=== PATIENT | female | born 1990 | race Caucasian/White ===

== ENCOUNTER 2020-11-06 20:29 | Emergency (ER) | payer OTHER, SELFPAY ==
--- NOTE | ~2020-11-06 | XR_ITS ---
EXAMINATION: X-RAYS OF THE LEFT TIBIA AND FIBULA LEFT ANKLE, AND LEFT FOOT CLINICAL INFORMATION: Fall COMPARISON: None TECHNIQUE: 2 views of left tibia-fibula. 2 views of the ankle. 3 views of the foot including lateral left ankle FINDINGS: Left ankle: Soft tissue swelling adjacent To the lateral malleolus and anteriorly. I Do not see a fracture. Surrounding bone and soft tissues normal. Left tibia-fibula: Normal no fracture. Left foot: Normal. XR/XR foot LT min 3V IMPRESSION: Soft tissue swelling about the ankle. No fracture or degenerative joint disease of the left tibia-fibula, left ankle, and left foot.
--- NOTE | ~2020-11-06 | XR_ITS ---
EXAMINATION: X-RAYS OF THE LEFT TIBIA AND FIBULA LEFT ANKLE, AND LEFT FOOT CLINICAL INFORMATION: Fall COMPARISON: None TECHNIQUE: 2 views of left tibia-fibula. 2 views of the ankle. 3 views of the foot including lateral left ankle FINDINGS: Left ankle: Soft tissue swelling adjacent To the lateral malleolus and anteriorly. I Do not see a fracture. Surrounding bone and soft tissues normal. Left tibia-fibula: Normal no fracture. Left foot: Normal. XR/XR tibia fibula LT 2V IMPRESSION: Soft tissue swelling about the ankle. No fracture or degenerative joint disease of the left tibia-fibula, left ankle, and left foot.
--- NOTE | ~2020-11-06 | XR_ITS ---
EXAMINATION: X-RAYS OF THE LEFT TIBIA AND FIBULA LEFT ANKLE, AND LEFT FOOT CLINICAL INFORMATION: Fall COMPARISON: None TECHNIQUE: 2 views of left tibia-fibula. 2 views of the ankle. 3 views of the foot including lateral left ankle FINDINGS: Left ankle: Soft tissue swelling adjacent To the lateral malleolus and anteriorly. I Do not see a fracture. Surrounding bone and soft tissues normal. Left tibia-fibula: Normal no fracture. Left foot: Normal. XR/XR ankle LT min 3V IMPRESSION: Soft tissue swelling about the ankle. No fracture or degenerative joint disease of the left tibia-fibula, left ankle, and left foot.
[2020-11-06 20:38] VITALS: BP 124/79; PULSE 108; RESP 18; TEMP 36.8; O2SAT 98; BMI 26.9
[2020-11-06] MEDS: Ibuprofen 600 MG TABLET PO (20:46)
[2020-11-06] MEDS: Acetaminophen 325 MG TABLET 650 MG PO (21:57)
[2020-11-06 22:03] VITALS: BP 118/72; PULSE 73; RESP 16; TEMP 35.7; O2SAT 95
--- NOTE | 2020-11-06 22:38 | PC.NURSE ---
at bedside for primary eval.
--- NOTE | 2020-11-06 22:43 | ED_ITS ---
HPI - Extremity Injury (Lower) General Chief Complaint: Extremity Injury, Lower Stated Complaint: fall, ankle inj Time Seen by Provider: 11/06/20 22:43 Source: patient and family Mode of arrival: ambulatory Limitations: no limitations History of Present Illness HPI Narrative: 30-year-old female came in for evaluation of left ankle injury. Patient incidentally twist her left ankle inward and fell on the ground earlier today after she tripped on object on the floor. Patient is complaining of left foot/ankle/lower leg pain, patient was not able to bear weight on the left leg, no head injury or LOC, no neck pain. Related Data Allergies Allergy/AdvReac Type Severity Reaction Status Date / Time latex [LATEX] Allergy Unknown RASH Verified 11/06/20 20:38 sertraline [Zoloft] Allergy Unknown Agitated Verified 11/06/20 20:38 LATEX Allergy Unknown RASH Uncoded 06/14/16 00:00 Review of Systems Review of Systems: All other systems are reviewed and are negative Constitutional: Reports as per HPI and Reports no additional constitutional complaints Eyes: Reports as per HPI and Reports no additional eye complaints Reports system reviewed and no additional complaints, except as documented Cardiovascular: Reports as per HPI and Reports no additional cardiovascular complaints Respiratory: Reports as per HPI and Reports no additional respiratory complaints Gastrointestinal: Reports as per HPI and Reports no additional gastrointestinal complaints Genitourinary: Reports no additional female genitourinary complaints Musculoskeletal: Reports no additional musculoskeletal complaints Skin/Breast: Reports system reviewed and no additional complaints, except as d ocu Psychiatric: Reports no additional psychiatric complaints Endocrine: Reports no additional endocrine complaints Hematologic/Lymphatic: Reports no additional hematologic/lymphatic complaints Allergic/Immunologic: Reports no additional allergic/immunologic complaints Reports system reviewed and no additional complaints, except as documented and Reports Abnormal speech present [facility] Past Medical History Medical History Anxiety Bipolar 1 disorder Depression IUD (intrauterine device) in place PTSD (post-traumatic stress disorder) Social History Social History Advance Directives: No Patient : No Physical Exam Vital Signs: Vital Signs: Last Vital Signs Temp 96.3 F L 11/06/20 22:03 Pulse 73 11/06/20 22:03 Resp 16 11/06/20 22:03 BP 118/72 11/06/20 22:03 Pulse Ox 95 11/06/20 22:03 Body Mass Index 26.9 Vital signs have been reviewed as appeared to be correct. Blood pressure normal. Heart rate normal. Respiration rate normal. Temperature normal. Oxygen saturation normal. Appearance: Alert. Oriented X3. No acute distress. Head: Normal external exam. Normocephalic. Atraumatic. No [place] signs noted. No raccoon eyes noted Eyes: PERRLA. EOMI. Conjunctiva and sclera normal. Eyelids normal. ENT: TM's Normal. Pharynx normal. Uvula midline. Moist mucous membranes. No trismus noted. No drooling noted. No muffled voice noted. Neck: Normal inspection. Neck supple. FROM. No adenopathy. Thyroid Normal. No meningeal signs. No neck mass noted. CVS: Normal heart rate and rhythm. Heart sound normal. No murmurs noted. Pulses normal throughout. Respiratory: No respiratory distress. Painless inspiration. Breath sounds normal. No wheezes/rales/rhonchi noted. Chest nontender. No accessory muscle usage noted or decreased air movement noted. Abdomen: Soft and nontender. Bowel sounds normal in all 4 quadrants. No distention noted. No organomegaly noted. No visible injury noted. Back: No CVA tenderness. Full range of motion noted. Skin: Skin warm and dry. Normal skin color. Normal skin turgor. No rashes/lesions/lacerations noted. Extremities: Left ankle swelling, tenderness on the lateral malleolus, no step- off or deformity, left hip with mild tenderness but full range of motion. Left lower extremity is neurovascular exam is intact. Neuro: Oriented X 3. Cranial nerve exam: II-XII are grossly intact No motor deficit. No sensory deficit. Reflexes normal. Course Course Course Narrative: Assessment and plan. Status post mechanical fall in left ankle injury. No acute fracture on the x-ray. Vince wrap to the left foot/ankle/lower leg. ice, no weight bear on the left line using crutches, NSAIDs. Follow-up with ortho. MDM - Extremity Injury (Lower) Medical Records Attestation: I reviewed the patient's medical records. Imaging Data Left ankle/foot/lower leg x-ray: Radiologist's impression: IMPRESSION: Soft tissue swelling about the ankle. ? No fracture or degenerative joint disease of the left tibia-fibula, left ankle, and left foot. Discharge Plan Discharge Clinical Impression: Ankle sprain and strain Patient Disposition: Home, Self-Care Instructions: Ankle Sprain (ED) Referrals: Dedrick Tierney MD [Physician] - 2 days
== END 2020-11-06 23:06 | disposition home or self-care (01) ==
PROVIDERS: Emergency Provider Emergency Medicine
DX: S93.402A Sprain of unspecified ligament of left ankle, initial encounter (principal); M25.572 Pain in left ankle and joints of left foot; F33.1 Major depressive disorder, recurrent, moderate; X50.1XXA Overexertion from prolonged static or awkward postures, initial encounter; Y93.9 Activity, unspecified; Y92.9 Unspecified place or not applicable; Y99.9 Unspecified external cause status; Z79.899 Other long term (current) drug therapy
CPT/HCPCS: 73590; 73610; 73630; 99283; 99284